=== PATIENT | female | born 1995 | race Caucasian/White ===

== ENCOUNTER 2021-01-19 09:52 | Outpatient (CLI) | payer BC, OTHER ==
[~2021-01-19 09:52] MED LIST: BACTRIM DS TAB1 EACH PO
== END 2021-01-19 13:09 | disposition home or self-care (01) ==
LOC: GENOP 09:52
DX: O99.891 Other specified diseases and conditions complicating pregnancy (principal); M54.9 Dorsalgia, unspecified; R42 Dizziness and giddiness; R03.0 Elevated blood-pressure reading, without diagnosis of hypertension; Z3A.37 37 weeks gestation of pregnancy
CPT/HCPCS: 81001; G0463

== ENCOUNTER 2021-01-31 09:05 | Inpatient (IN) | payer BC, OTHER ==
[2021-01-31] MEDS ORDERED: FEROSUL325 MG PO (16:18)
[2021-01-31] MEDS ORDERED: IBUPROFEN600 MG PO (16:18)
[2021-01-31] MEDS ORDERED: DOCUSATE SODIU250 MG PO (16:18)
[2021-01-31] MEDS ORDERED: HYDROCODONE-AC1 EACH PO (16:18)
[2021-02-01 05:47] LABS: HEMOGLOBIN 10.5 gm/dl (12.3-15.3)
[2021-02-01] MEDS ORDERED: COLACE 100MG C100 MG PO (09:25)
[2021-02-01] MEDS ORDERED: IBUPROFEN600 MG PO (09:25)
[2021-02-01] MEDS ORDERED: HYDROCODON-ACE1 EAC6 PO (09:25)
== END 2021-02-01 18:05 | disposition home or self-care (01) | DRG 788 ==
LOC: OB 09:05
PROVIDERS: Obstetrics & Gynecology; ADMIT Obstetrics & Gynecology
PROC: 4A1HXCZ Monitoring of Products of Conception, Cardiac Rate, External Approach (ICD-10-PCS; 2021-01-31)
PROC: 10D00Z1 Extraction of Products of Conception, Low, Open Approach (ICD-10-PCS; principal; 2021-01-31 10:20)
DX: O34.211 Maternal care for low transverse scar from previous cesarean delivery (principal); Z3A.39 39 weeks gestation of pregnancy; Z37.0 Single live birth; O99.344 Other mental disorders complicating childbirth; F32.9 Major depressive disorder, single episode, unspecified; Z20.822 Contact with and (suspected) exposure to COVID-19; Z88.2 Allergy status to sulfonamides; Z91.012 Allergy to eggs; Z82.49 Family history of ischemic heart disease and other diseases of the circulatory system
CPT/HCPCS: 36415; 81001; 82800; 85014; 85018; 85025; 90471; 90715; C9113; J1580; J1885; J2274; J2370; J2405; J2590; J3010; J7120; U0003